=== PATIENT | female | born 1965 | race Caucasian/White ===

== ENCOUNTER 2017-10-26 19:53 | Emergency (ER) | payer BC ==
[~2017-10-26] VITALS: Ht 157.5 cm; Wt 72.7 kg
[~2017-10-26 19:53] MED LIST: BUPROPION XL300 MG PO; HYDROCODONE-APA1 TAB PO; MEPERIDINE HCL50 MG PO; ONDANSETRON ODT 8MG; PROVENTIL HFA6.7 GM INH
[2017-10-26 20:47] VITALS: BP 180/100; Ht 157.5 cm; Wt 72.7 kg
[2017-10-26] MEDS ORDERED: BUPROPION XL300 MG PO (20:51)
[2017-10-26] MEDS ORDERED: VIIBRYD40 MG PO (20:52)
[2017-10-26] MEDS ORDERED: HYDROCHLOROTHIA25 MG PO (20:52)
== END 2017-10-27 02:20 | disposition left against medical advice (07) ==
LOC: D.ER 19:53
DX: S09.93XA Unspecified injury of face, initial encounter (principal); X58.XXXA Exposure to other specified factors, initial encounter; Y93.9 Activity, unspecified; Y92.9 Unspecified place or not applicable

== ENCOUNTER 2017-11-21 17:11 | Emergency (ER) | payer BC, MEDICAID ==
[~2017-11-21] VITALS: Ht 157.5 cm; Wt 72.7 kg
[~2017-11-21 17:11] MED LIST changes: +HYDROCHLOROTHIA25 MG PO; +VIIBRYD40 MG PO
[2017-11-21 17:18] VITALS: Ht 157.5 cm; Wt 72.7 kg
[2017-11-21] MEDS ORDERED: ROBAXIN-750750 MG PO (20:26)
[2017-11-21] MEDS ORDERED: ULTRAM50 MG PO (20:26)
[2017-11-21 20:35] VITALS: BP 157/98
== END 2017-11-21 20:35 | disposition home or self-care (01) ==
LOC: D.ER 17:11
DX: S59.901A Unspecified injury of right elbow, initial encounter (principal); W55.12XA Struck by horse, initial encounter; Y93.89 Activity, other specified; Y92.019 Unspecified place in single-family (private) house as the place of occurrence of the external cause; M79.1 Myalgia; N64.4 Mastodynia

== ENCOUNTER 2018-05-24 15:42 | Emergency (ER) | payer BC, MEDICAID ==
[~2018-05-24] VITALS: Ht 157.5 cm; Wt 72.7 kg
[~2018-05-24 15:42] MED LIST changes: +ROBAXIN-750750 MG PO; +ULTRAM50 MG PO
[2018-05-24 15:52] VITALS: BP 157/100; Ht 157.5 cm; Wt 72.7 kg
[2018-05-24] MEDS ORDERED: COZAAR50 MG PO (15:53)
[2018-05-24] MEDS ORDERED: HYDROCHLOROTH12.5 M1 PO (15:54)
[2018-05-24] MEDS ORDERED: NALTREXONE HCL50 MG PO (15:54)
[2018-05-24 16:11] LABS: BASOPHILS 0.4 % (0-2); EOSINOPHILS 1.2 % (0-7); HEMATOCRIT 35.7 % (36.0-48.0); HEMOGLOBIN 10.6 g/dL (12-16); IMMATURE GRANULOCYTES 0.1 % (0-5); LYMPHOCYTES 19.8 % (15-50); MCH 20.2 pg (26.0-34.0); MCHC 29.7 g/dL (31.0-37.0); MCV 68.1 fL (80.0-100.0); MEAN PLATELET VOLUME 9.1 fL (7.4-10.4); MONOCYTES 5.5 % (2-11); PLATELET COUNT 419 10x3/uL (130-400); RBC 5.24 10x6/uL (4.00-5.40); RDW 18.1 % (11.5-14.5); WBC 6.9 10x3/uL (4.8-10.8)
[2018-05-24 16:37] LABS: ALBUMIN 3.9 g/dL (3.4-5.0); ANION GAP 17.1 mmol/L (8-16); BILIRUBIN - TOTAL 0.25 mg/dL (0.2-1.3); CARBON DIOXIDE 23.5 mmol/L (21.0-32.0); CREATININE - SERUM 0.9 mg/dL (0.6-1.3); POTASSIUM - SERUM 3.6 mmol/L (3.5-5.1); PROTEIN - SERUM 7.7 g/dL (6.4-8.2)
[2018-05-24 17:53] LABS: APPEARANCE CLEAR (CLEAR); BILIRUBIN NEGATIVE (NEGATIVE); COLOR YELLOW (YELLOW); GLUCOSE NEGATIVE (NEGATIVE); KETONE SMALL mg/dL (NEGATIVE); NITRITE NEGATIVE (NEGATIVE); PROTEIN NEGATIVE (NEGATIVE); UROBILINOGEN NORMAL (NORMAL)
[2018-05-24 18:01] LABS: UDS - AMPHET POSITIVE QUAL (NEGATIVE); UDS - BARB NEGATIVE QUAL (NEGATIVE); UDS - BENZO NEGATIVE QUAL (NEGATIVE); UDS - COCAINE NEGATIVE QUAL (NEGATIVE); UDS - OPIATE NEGATIVE QUAL (NEGATIVE); UDS - PCP NEGATIVE QUAL (NEGATIVE); UDS - THC NEGATIVE QUAL (NEGATIVE)
== END 2018-05-24 18:46 | disposition home or self-care (01) ==
LOC: D.ER 15:42
PROVIDERS: Family Medicine
DX: T50.905A Adverse effect of unspecified drugs, medicaments and biological substances, initial encounter (principal); Y92.019 Unspecified place in single-family (private) house as the place of occurrence of the external cause; R55 Syncope and collapse; I10 Essential (primary) hypertension

== ENCOUNTER 2019-07-01 00:27 | Emergency (ER) | payer BC, OTHER ==
[~2019-07-01] VITALS: Ht 157.5 cm; Wt 68.2 kg
[~2019-07-01 00:27] MED LIST changes: +COZAAR50 MG PO; +HYDROCHLOROTH12.5 M1 PO; +NALTREXONE HCL50 MG PO
[2019-07-01 00:44] VITALS: BP 142/92; Ht 157.5 cm; Wt 68.2 kg
[2019-07-01] MEDS ORDERED: CYMBALTA60 MG PO (00:48)
[2019-07-01] MEDS ORDERED: OMEPRAZOLE40 MG PO (00:48)
[2019-07-01] MEDS ORDERED: SUMATRIPTAN SUC25 MG PO (01:09)
== END 2019-07-01 01:32 | disposition home or self-care (01) ==
LOC: D.ER 00:27
DX: G43.909 Migraine, unspecified, not intractable, without status migrainosus (principal); R25.2 Cramp and spasm; I10 Essential (primary) hypertension; J45.909 Unspecified asthma, uncomplicated

== ENCOUNTER → 2019-09-06 12:08 | Outpatient (CLI) | payer BC, OTHER ==
[2019-07-01 00:44] VITALS: BMI 27.5
[~2019-09-06 12:08] MED LIST changes: +CYMBALTA60 MG PO; +OMEPRAZOLE40 MG PO; +SUMATRIPTAN SUC25 MG PO
--- NOTE | 2019-09-06 16:01 | NUR ---
0472 PROCEDURE ABORTED AFTER MULTIPLE ATTEMPTS TO DROP TUBE. ATTEMPTED BY MULTIPLE NURSES. UNABLE TO PLACE DUE TO PATIENTS ANATOMY. TUBE REMOVED AND PT DC'D HOME.
== END | disposition home or self-care (01) ==
LOC: D.OPS 06-06 11:30
PROVIDERS: ATTEND Internal Medicine Gastroenterology
DX: K21.9 Gastro-esophageal reflux disease without esophagitis (principal); D64.9 Anemia, unspecified; R49.9 Unspecified voice and resonance disorder; K59.09 Other constipation